=== PATIENT | female | born 1980 | race African-American/Black ===

== ENCOUNTER 2017-05-05 20:43 | Emergency (ER) | payer OTHER ==
[~2017-05-05] VITALS: Ht 162.6 cm; Wt 82.6 kg
[~2017-05-05 20:43] MED LIST: ALPRAZOLAM ER1 MG PO; ATIVAN1 MG PO; BACLOFEN20 MG; BCP; BUTALB-APAP-CA1 EACH; CARAFATE 1 GM TA1 G1 PO; CLONAZEPAM; CLONAZEPAM 1 MG1 M1 PO; FLAGYL500 MG PO; GABAPENTIN100 MG PO; IBUPROFEN 600600 M1 PO; IBUPROFEN 800800 MG PO; KETOPROFEN75 MG; LORTABELXR PO; MACROBID 100 M100 M1 PO; MEDROLDOSEPACK PO; MOTION RELIEF25 MG PO; NORCO 5-325 TA1 EACH PO; ONDANSETRON HCL4 M2 PO; OXYCODONE HCL20 M1; PERCOCET 5-3251 EACH PO; PHENERGAN 25 MG25 M1 PO; PRILOSEC 10MG C10 MG PO; PROZAC; PROZAC 20 MG20 MG PO; RANITIDINE 150150 M1 PO; TIZANIDINE HCL4 M1 PO; VALIUM5 MG PO; VITAMIN D10000 UNIT; ZANAFLEX4 MG
[2017-05-05] MEDS ORDERED: MOBIC15 MG PO ×2 (20:59→22:25)
[2017-05-05] MEDS ORDERED: NORFLEX100 MG PO (22:25)
== END 2017-05-05 22:53 | disposition home or self-care (01) ==
LOC: ER 20:43
DX: S63.501A Unspecified sprain of right wrist, initial encounter (principal); S16.1XXA Strain of muscle, fascia and tendon at neck level, initial encounter; S39.012A Strain of muscle, fascia and tendon of lower back, initial encounter; F41.9 Anxiety disorder, unspecified; Z86.2 Personal history of diseases of the blood and blood-forming organs and certain disorders involving the immune mechanism; Z90.49 Acquired absence of other specified parts of digestive tract; Z88.6 Allergy status to analgesic agent; Z91.040 Latex allergy status; Z88.8 Allergy status to other drugs, medicaments and biological substances; V43.52XA Car driver injured in collision with other type car in traffic accident, initial encounter; Y93.I9 Activity, other involving external motion; Y92.89 Other specified places as the place of occurrence of the external cause; Y99.8 Other external cause status

== ENCOUNTER 2018-07-17 22:02 | Emergency (ER) | payer OTHER ==
[~2018-07-17] VITALS: Ht 162.6 cm; Wt 67.1 kg
[~2018-07-17 22:02] MED LIST changes: +MOBIC15 MG PO; +NORFLEX100 MG PO
[2018-07-17 22:22] VITALS: BP 137/46
[2018-07-17] MEDS ORDERED: PROZAC20 MG PO (22:25)
[2018-07-17] MEDS ORDERED: ADDERALL 30 MG30 MG PO (22:25)
[2018-07-17] MEDS ORDERED: MOBIC15 MG PO (23:21)
== END 2018-07-17 23:33 | disposition home or self-care (01) ==
LOC: ER 22:02
DX: R59.0 Localized enlarged lymph nodes (principal); L65.9 Nonscarring hair loss, unspecified; F41.9 Anxiety disorder, unspecified; Z88.6 Allergy status to analgesic agent; Z91.040 Latex allergy status; Z91.048 Other nonmedicinal substance allergy status; Z88.8 Allergy status to other drugs, medicaments and biological substances; Z86.2 Personal history of diseases of the blood and blood-forming organs and certain disorders involving the immune mechanism; Z90.49 Acquired absence of other specified parts of digestive tract